=== PATIENT | female | born 1940 | race Two or more races ===

== ENCOUNTER → 2016-08-27 | Outpatient (CLI) | payer OTHER ==
[~2016-08-27] MED LIST: ALLO300T2 PO; DOCU100T15 PO; LISI2.5T47 PO; LORA-622 PO; METF-370 PO; PANT40TA2 PO; SERT-135 PO
[2016-08-27 12:51] LABS: Basophils # (auto) 0 uL; Basophils % (auto) 0.6 % (0.0-2.0); CONDITION Y; Eosinophils # (auto) 0.1 uL; Eosinophils % (auto) 2.3 % (0.0-7.0); Hematocrit 40.3 % (36.0-46.0); Hemoglobin 13.6 g/dL (12.2-16.2); Lymphocytes # (auto) 1.9 uL; Lymphocytes % (auto) 34.2 % (10.0-50.0); Mean Corpuscular Hemoglobin 30.1 pg (28.0-32.0); Mean Corpuscular Hgb Conc. 33.8 g/dL (32.0-36.0); Mean Corpuscular Volume 89.1 fL (80.0-100.0); Mean Platelet Volume 7.8 fL (7.4-10.4); Monocytes # (auto) 0.5 uL; Monocytes % (auto) 8.6 % (0.0-12.0); Neutrophils % (auto) 54.3 % (37.0-80.0); Platelet Count (auto) 314 10^3/uL (140-450); Red Cell Distribution Width 13.5 % (11.6-16.0); White Blood Cell 5.6 10^3/uL (4.4-10.8)
[2016-08-27 13:08] LABS: Urine Bilirubin Negative (Negative); Urine Blood Negative /uL (Negative); Urine Color Yellow (Yellow); Urine Glucose Normal (Normal); Urine Ketone Negative (Negative); Urine Nitrite Negative (Negative); Urine RBC 5 /hpf (0 - 4); Urine Squamous Epithelial Cell FEW /hpf (<5); Urine Urobilinogen Normal (Negative); Urine pH 6.5 (5.0-8.0)
[2016-08-27 13:14] LABS: Albumin 3.6 g/dL (3.4-5.0); BUN/Creatinine Ratio 24.1; Bilirubin, Total 0.4 mg/dL (0.2-1.0); Calcium 9.1 mg/dL (8.5-10.1); Potassium 4.1 mmol/L (3.5-5.1); Total Protein 7.4 g/dL (6.4-8.2); Uric Acid 5.9 mg/dL (2.6-6.0)
== END | disposition home or self-care (01) ==
LOC: LAB 11:01
PROVIDERS: ATTEND Family Medicine
DX: E11.9 Type 2 diabetes mellitus without complications (principal); E78.5 Hyperlipidemia, unspecified; M10.00 Idiopathic gout, unspecified site
CPT/HCPCS: 36415; 80053; 80061; 81001; 82043; 83036; 84550; 85025

== ENCOUNTER → 2016-11-03 | Outpatient (CLI) | payer OTHER ==
[~2016-11-03] VITALS: Ht 157.5 cm; Wt 72.1 kg
[~2016-11-03] MED LIST changes: +ADENOSINE 61 MG in GIVE UN-DILUTED 0 ML IV ONE
== END | disposition home or self-care (01) ==
LOC: XY 08:22
PROVIDERS: ATTEND Internal Medicine Cardiovascular Disease
DX: R07.9 Chest pain, unspecified (principal); I10 Essential (primary) hypertension; E11.9 Type 2 diabetes mellitus without complications
CPT/HCPCS: 78452; 93017; 93306; A9500; J0153

== ENCOUNTER → 2017-12-09 | Outpatient (CLI) | payer OTHER ==
[~2017-12-09] MED LIST changes: -ADENOSINE 61 MG in GIVE UN-DILUTED 0 ML IV ONE
== END | disposition home or self-care (01) ==
LOC: XYW 10:22
PROVIDERS: ATTEND Internal Medicine
DX: I10 Essential (primary) hypertension (principal); Z88.5 Allergy status to narcotic agent
CPT/HCPCS: 93306

== ENCOUNTER → 2017-12-15 | Outpatient (CLI) | payer OTHER ==
[2017-12-15 11:50] LABS: Basophils # (auto) 0 uL; Eosinophils # (auto) 0.3 uL; Eosinophils % (auto) 5.8 % (0.0-7.0); Hematocrit 38.2 % (36.0-46.0); Hemoglobin 13.4 g/dL (12.2-16.2); Lymphocytes # (auto) 1.4 uL; Lymphocytes % (auto) 30.8 % (10.0-50.0); Mean Corpuscular Hemoglobin 30.8 pg (28.0-32.0); Mean Corpuscular Volume 88.1 fL (80.0-100.0); Monocytes # (auto) 0.4 uL; Monocytes % (auto) 9.5 % (0.0-12.0); Neutrophils # (auto) 2.4 uL; Neutrophils % (auto) 52.9 % (37.0-80.0); Nucleated Red Blood Cells % 0.1 %; Platelet Count (auto) 245 10^3/uL (140-450); Red Blood Cells 4.34 10^6/uL (4.0-5.20); Red Cell Distribution Width 13.1 % (11.8-14.3); White Blood Cell 4.5 10^3/uL (4.4-10.8)
[2017-12-15 12:01] LABS: Urine Bacteria NONE SEEN /hpf (None Seen); Urine Blood Negative /uL (Negative); Urine Specific Gravity 1.015 (1.001-1.035); Urine WBC 3 /hpf (0 - 5)
[2017-12-15 12:19] LABS: Albumin 3.5 g/dL (3.4-5.0); Bilirubin, Total 0.6 mg/dL (0.2-1.0); CRP High Sensitivity 0.38 mg/dL (< 0.3); Calcium 8.9 mg/dL (8.5-10.1); Potassium 3.9 mmol/L (3.5-5.1); Total Protein 7.3 g/dL (6.4-8.2)
[2017-12-15 12:23] LABS: Free T4 (Free Thyroxine) 0.9 ng/dL (0.89-1.76)
[2017-12-15 12:24] LABS: T3 Total 1.35 ng/mL (0.60-1.81)
[2017-12-15 12:25] LABS: Folate (Folic Acid) 21.33 ng/mL (5.38-24)
== END | disposition home or self-care (01) ==
LOC: LAB 11:17
PROVIDERS: ATTEND Nurse Practitioner
DX: E78.5 Hyperlipidemia, unspecified (principal); I10 Essential (primary) hypertension; E11.9 Type 2 diabetes mellitus without complications; Z86.79 Personal history of other diseases of the circulatory system
CPT/HCPCS: 36415; 80053; 80061; 81001; 82306; 82607; 82746; 83036; 84439; 84443; 84480; 85025; 86141

== ENCOUNTER → 2018-06-27 | Outpatient (CLI) | payer OTHER ==
[2018-06-27 12:22] LABS: Basophils # (auto) 0.1 uL; Basophils % (auto) 1.5 % (0.0-2.0); Eosinophils # (auto) 0.3 uL; Eosinophils % (auto) 6.4 % (0.0-7.0); Hematocrit 40.4 % (36.0-46.0); Hemoglobin 13.7 g/dL (12.2-16.2); Lymphocytes # (auto) 1.3 uL; Lymphocytes % (auto) 30.3 % (10.0-50.0); Mean Corpuscular Hemoglobin 30.4 pg (28.0-32.0); Mean Corpuscular Volume 89.3 fL (80.0-100.0); Monocytes # (auto) 0.5 uL; Monocytes % (auto) 10.7 % (0.0-12.0); Neutrophils # (auto) 2.2 uL; Neutrophils % (auto) 51.1 % (37.0-80.0); Nucleated Red Blood Cells % 0.1 %; Platelet Count (auto) 244 10^3/uL (140-450); Red Blood Cells 4.52 10^6/uL (4.0-5.20); Red Cell Distribution Width 14.4 % (11.8-14.3); White Blood Cell 4.4 10^3/uL (4.4-10.8)
[2018-06-27 12:27] LABS: Urine Bacteria FEW /hpf (None Seen); Urine Blood TRACE /uL (Negative); Urine Specific Gravity 1.025 (1.001-1.035); Urine WBC 6 /hpf (0 - 5)
[2018-06-27 12:43] LABS: Potassium 4.2 mmol/L (3.5-5.1)
[2018-06-27 12:53] LABS: Albumin 3.5 g/dL (3.4-5.0); BUN/Creatinine Ratio 27.8; Bilirubin, Total 0.6 mg/dL (0.2-1.0); Total Protein 7.4 g/dL (6.4-8.2)
== END | disposition home or self-care (01) ==
LOC: LAB 10:32
PROVIDERS: ATTEND Nurse Practitioner
DX: E11.9 Type 2 diabetes mellitus without complications (principal); E78.5 Hyperlipidemia, unspecified
CPT/HCPCS: 36415; 80053; 80061; 81001; 82043; 83036; 84443; 85025

== ENCOUNTER → 2018-09-02 | Outpatient (CLI) | payer OTHER ==
[2018-09-02 11:00] LABS: Basophils # (auto) 0 uL; Basophils % (auto) 0.7 % (0.0-2.0); Eosinophils # (auto) 0.2 uL; Eosinophils % (auto) 3.2 % (0.0-7.0); Hematocrit 43.4 % (36.0-46.0); Hemoglobin 14.7 g/dL (12.2-16.2); Lymphocytes # (auto) 1.7 uL; Mean Corpuscular Hemoglobin 30.1 pg (28.0-32.0); Mean Corpuscular Hgb Conc. 33.8 g/dL (32.0-36.0); Mean Corpuscular Volume 89.1 fL (80.0-100.0); Monocytes # (auto) 0.6 uL; Monocytes % (auto) 9.1 % (0.0-12.0); Neutrophils # (auto) 3.7 uL; Nucleated Red Blood Cells % 0.1 %; Platelet Count (auto) 253 10^3/uL (140-450); Red Blood Cells 4.87 10^6/uL (4.0-5.20); Red Cell Distribution Width 12.9 % (11.8-14.3); White Blood Cell 6.2 10^3/uL (4.4-10.8)
[2018-09-02 13:01] LABS: Potassium 4.2 mmol/L (3.5-5.1)
[2018-09-02 13:09] LABS: Albumin 3.5 g/dL (3.4-5.0); BUN/Creatinine Ratio 25.3; Total Protein 7.6 g/dL (6.4-8.2)
[2018-09-02 14:01] LABS: Bilirubin, Total 0.4 mg/dL (0.2-1.0)
[2018-09-02 14:35] LABS: Urine Specific Gravity 1.012 (1.001-1.035)
[2018-09-02 14:36] LABS: Urine Blood Normal /uL (Negative)
[2018-09-02 15:25] LABS: Urine Bacteria FEW /hpf (None Seen); Urine Mucus FEW (None Seen); Urine WBC 9 /hpf (0 - 5)
== END | disposition home or self-care (01) ==
LOC: LAB 10:20
PROVIDERS: ATTEND Nurse Practitioner
DX: E11.9 Type 2 diabetes mellitus without complications (principal); E78.5 Hyperlipidemia, unspecified
CPT/HCPCS: 36415; 80053; 80061; 81001; 82043; 83036; 84443; 85025

== ENCOUNTER 2019-02-21 09:36 | Inpatient (IN) | payer OTHER ==
[2019-02-17 13:27] LABS: Urine Blood TRACE /uL (Negative); Urine Specific Gravity 1.012 (1.001-1.035)
[2019-02-17 13:32] LABS: Basophils # (auto) 0 uL; Basophils % (auto) 0.9 % (0.0-2.0); Eosinophils # (auto) 0.2 uL; Eosinophils % (auto) 3.9 % (0.0-7.0); Hematocrit 40.6 % (36.0-46.0); Lymphocytes # (auto) 1.5 uL; Lymphocytes % (auto) 29.8 % (10.0-50.0); Mean Corpuscular Hemoglobin 30.2 pg (28.0-32.0); Mean Corpuscular Hgb Conc. 34.4 g/dL (32.0-36.0); Monocytes # (auto) 0.5 uL; Monocytes % (auto) 9.3 % (0.0-12.0); Neutrophils # (auto) 2.7 uL; Neutrophils % (auto) 56.1 % (37.0-80.0); Nucleated Red Blood Cells % 0.2 %; Platelet Count (auto) 245 10^3/uL (140-450); Red Blood Cells 4.62 10^6/uL (4.0-5.20); Red Cell Distribution Width 13.6 % (11.8-14.3); White Blood Cell 4.9 10^3/uL (4.4-10.8)
[2019-02-17 13:44] LABS: INR 1.03 (0.9-1.15); Partial Thromboplastin Time 26.5 sec (23.64-32.05)
[2019-02-17 13:59] LABS: Albumin 3.7 g/dL (3.4-5.0); Calcium 8.8 mg/dL (8.5-10.1)
[2019-02-17 14:04] LABS: BUN/Creatinine Ratio 21.5; Bilirubin, Total 0.6 mg/dL (0.2-1.0); Total Protein 7.1 g/dL (6.4-8.2)
[2019-02-21] VITALS (7 sets, daily range): BP systolic 114–118; BP diastolic 60–76
[~2019-02-21] VITALS: Ht 157.5 cm; Wt 87.1 kg
[~2019-02-21 09:36] MED LIST changes: -ALLO300T2 PO; -DOCU100T15 PO; -LISI2.5T47 PO; -LORA-622 PO; -PANT40TA2 PO; -SERT-135 PO; +SERT100T PO
[2019-02-21] MEDS ORDERED: ceFAZolin 1GM/50ML 100 ML IV ONE (11:02)
[2019-02-21] MEDS ORDERED: ceFAZolin 1GM/50ML 50 ML IV ONE (11:07)
[2019-02-21] MEDS ORDERED: fentaNYL CITRATE 100 MCG/2 ML VL ONE (12:23)
[2019-02-21] MEDS ORDERED: ONDANSETRON HCL 4 MG/2 ML VIAL ONE (12:23)
[2019-02-21] MEDS ORDERED: MIDAZOLAM HCL 1MG/1ML-2 ML VIAL ONE ×2 (12:23→13:27)
[2019-02-21] MEDS ORDERED: EPINEPHrine HCL 1 MG/1 ML AMP ONE ×2 (12:23→12:53)
[2019-02-21] MEDS ORDERED: MORPHINE SULF(PF) 0.5MG/ML 10ML VIAL ONE (12:23)
[2019-02-21] MEDS ORDERED: SODIUM CHLORIDE LOCK 10 ML ONE (12:23)
[2019-02-21] MEDS ORDERED: BUPIVACAINE/DEXTROSE MPF 0.75% 2 ML AMP IT ONE (12:23)
[2019-02-21] MEDS ORDERED: PROPOFOL 10 MG/ML 20 ML IV ONE ×3 (12:23→15:48)
[2019-02-21] MEDS ORDERED: ROPIVACAINE 0.5% (5MG/ML) 20ML AMPULE IJ ONE (12:50)
[2019-02-21] MEDS ORDERED: KETOROLAC TROMETH 30 MG/ML 1ML VIAL ONE ×2 (12:53→12:54)
[2019-02-21] MEDS ORDERED: TETRACAINE 1% INJ 2 ML VIAL IJ ONE (12:56)
[2019-02-21] MEDS ORDERED: METOCLOPRAMIDE HCL 5MG/ml INJ 2ml VIAL IV PRN (14:30)
[2019-02-21] MEDS ORDERED: diphenhdrAMINE HCL 50 MG/1 ML VL IV PRN (14:30)
[2019-02-21] MEDS ORDERED: HYDROmorphone HCL 2 MG/ML VL IV PRN ×2 (14:30→16:45)
[2019-02-21] MEDS ORDERED: NALOXONE HCL 0.4 MG/ML VIAL IV PRN (14:30)
[2019-02-21] MEDS ORDERED: fentaNYL CITRATE 100 MCG/2 ML VL IV PRN (14:30)
[2019-02-21] MEDS ORDERED: MORPHINE SULFATE 4 MG/ML SYR/VIAL IV PRN (14:30)
[2019-02-21] MEDS ORDERED: ACCU-CHEK COMFORT CURVE STRIP VI ONE (14:30)
[2019-02-21] MEDS ORDERED: LIDOCAINE 1% (LOCAL ANESTH.) PF 5ml SDV ONE (15:47)
[2019-02-21] MEDS ORDERED: TEMAZEPAM 15 MG CAP PO PRN (16:45)
[2019-02-21] MEDS ORDERED: ACETAMINOPHEN 325 MG TAB PO PRN (16:45)
[2019-02-21] MEDS: ceFAZolin 1GM/50ML 50 ML IV SCH ×2 (16:45→22:08)
--- NOTE | 2019-02-21 18:00 | NUR ---
Telemetry admit from Surgery/PACU LOI ZHAO admitted to Telemetry unit after SBAR received. Patient oriented to Savanah Junior RN, unit, room, bed, and unit policies regarding patient care and visiting hours. Patient now on continuous telemetry monitoring, tele box # 18 and telemetry reading on arrival to unit is 87. Patient placed on bedside oxygen at 2 LPM, weighed by bed scale and encouraged to call if she needs something. All questions and concerns addressed. Patient is very hard of hearing. No hearing aid at bedside. Note: On Duramorph precautions per protocol.
--- NOTE | 2019-02-21 18:00 | NUR ---
On Anaya catheter.
--- NOTE | 2019-02-21 19:00 | NUR ---
Called patient's Riaz that patient is already transferred from PACU to Room 248A. Sanjana said he will come over tomorrow, Wednesday to see the patient.
--- NOTE | 2019-02-21 19:25 | NUR ---
OPENING NOTE- NOC SHIFT PATIENT IS ALERT AND ORIENTED X4, ANSWERS IN COMPLETE SENTENCES AND MAKES APPROPRIATE EYE CONTACT. 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 HEARING AIDS ARE NOT AT BEDSIDE; PATIENT STATES THAT HER TOOK THEM WITH HIM BEFORE HER SURGERY. PATIENT IS POST OP LEFT KNEE DENIES PAIN OR DISCOMFORT AT THIS TIME. PATIENT IS IN BED, BED IS LOCKED AT LOWEST POSITION, BED RAILS UP X2 AND HEAD OF BED IS UP >30 DEGREES. DISCUSSED POC WITH PATIENT AND INSTRUCTED PATIENT TO CALL PRN; PATIENT VERBALIZED UNDERSTANDING. WILL CONTINUE TO MONITOR Q1H AND PRN.
--- NOTE | 2019-02-21 19:50 | NUR ---
SCD'S APPLIED TO RIGHT LEG. PATIENT TOLERATES WELL.
--- NOTE | 2019-02-21 20:00 | NUR ---
POST DURAMORPH PROTOCOL ASSESSMENT IN PLACE. VITAL SIGNS Q1H AND CONTINUOUS PULSE OXIMETER. PATIENT ROOM IS CLOSE TO NURSE STATION.
[2019-02-21] MEDS: DOCUSATE SOD 100 MG CAP PO SCH (22:00)
[2019-02-21] MEDS: SODIUM CHLOR 0.9% PF (SALINE LOCK) 10ML VIAL/SYR IV SCH (22:07)
[2019-02-21] MEDS: HYDROcodone-ACET 10/325MG TAB PO PRN (23:07)
[2019-02-22] VITALS (16 sets, daily range): BP systolic 90–138; BP diastolic 48–78
[2019-02-22] MEDS: ceFAZolin 1GM/50ML 50 ML IV SCH (04:38)
[2019-02-22] MEDS: HYDROcodone-ACET 10/325MG TAB PO PRN ×5 (04:39→23:29)
[2019-02-22] MEDS: SODIUM CHLOR 0.9% PF (SALINE LOCK) 10ML VIAL/SYR IV SCH ×3 (05:12→21:44)
[2019-02-22 07:14] LABS: Hematocrit 31.1 % (36.0-46.0); Hemoglobin 10.6 g/dL (12.2-16.2)
--- NOTE | 2019-02-22 07:17 | NUR ---
CLOSING NOTE- NOC SHIFT PATIENT IS COMFORTABLE IN BED. NO S/SX OF DISTRESS OR SOB. PATIENT WAS ABLE TO REST THROUGHOUT THE NIGHT. PATIENT REPORTED PAIN OF NO HIGHER THAN 5/10 DURING DYE WEIGHER; PAIN MEDICATION WAS ADMINISTERED PER MD ORDERS ON eMAR. VITAL SIGNS WERE ASSESSED AND RECORDED. PATIENT BP THROUGHOUT THE NIGHT WAS LOW, HOWEVER PATIENT REPORTS THIS IS HER BASELINE WHEN AT REST DURING THE NIGHT; REFER TO INTERVENTION FOR SPINAL ANESTHESIA ASSESSMENT FOR VALUES. PATIENT WAS CALM THROUGHOUT THE NIGHT; BOWEL MOVEMENTS PRESENT, PATIENT REPORTS PASSING GAS. PEDAL PULSES PRESENT BILATERAL. WILL ENDORSE CPM TO DAY SHIFT NURSE.
--- NOTE | 2019-02-22 07:30 | NUR ---
Patient in bed, awake, oriented x4, hard of hearing, no acute distress noted, on Duramorph protocol. O2 Sat = 95% on O2 at 2 LPM, Heart rate = 86.
--- NOTE | 2019-02-22 07:30 | NUR ---
Right leg on SCD. Waiting for Ortho to deliver the CPM for left knee.
[2019-02-22] MEDS: DOCUSATE SOD 100 MG CAP PO SCH ×2 (09:35→21:43)
[2019-02-22] MEDS: ENOXAPARIN SOD 40 MG/0.4 ML SYRINGE SC SCH (09:35)
--- NOTE | 2019-02-22 09:36 | NUR ---
[place] PO given for left knee pain, and preparation for physical therapy. Addendum: 02/22/19 at 1852 by Savanah Ely RN [place]
--- NOTE | 2019-02-22 09:50 | NUR ---
Called Ortho. Spoke with Williams. Patient has orders for CPM, post op Left Total Knee Replacement yesterday, Wednesday. Patient transferred to Room 248A with no CPM at 6:00 pm yesterday.
--- NOTE | 2019-02-22 09:58 | NUR ---
Removed the Anaya catheter as ordered. About 120 ml of clear, light kenneth urine collected from the Anaya catheter.
[2019-02-22] MEDS: ONDANSETRON HCL 4 MG/2 ML VIAL IV PRN ×2 (11:02→16:00)
--- NOTE | 2019-02-22 11:02 | NUR ---
Patient sitting in chair, vomiting. Zofran Inj 4 mg given for nausea/vomiting. Family at bedside.
[2019-02-22] MEDS ORDERED: HYDROmorphone HCL 2 MG/ML VL IV PRN (11:30)
[2019-02-22] MEDS ORDERED: DEXTROSE (50%) 50ML SYRG IV PRN (11:30)
[2019-02-22] MEDS ORDERED: FAMOTIDINE (10MG/ML) 2ML VL IV ONE (11:30)
--- NOTE | 2019-02-22 11:35 | NUR ---
Patient back to bed, stated she feels better, no more nausea/vomiting.
[2019-02-22] MEDS: ACCU-CHEK COMFORT CURVE STRIP VI SCH ×3 (13:10→23:32)
[2019-02-22] MEDS: InsuLIN REG 1unit/0.01ml Soln (100units/ml) SC SCH ×3 (13:10→23:33)
--- NOTE | 2019-02-22 13:20 | NUR ---
Dr. Vyas at bedside. made aware CPM machine has not been brought by Ortho Unit yet. Dr. Vyas said it's okay, ordered to change the surgical dressing on the left knee, continue with physical therapy daily.
--- NOTE | 2019-02-22 13:28 | NUR ---
[place] PO given for left knee pain, preparation for surgical wound dressing change. Addendum: 02/22/19 at 1851 by Savanah Ely RN [place]
--- NOTE | 2019-02-22 13:35 | NUR ---
Surgical dressing on the left knee soiled with blood. Removed the dressing on the left knee, surgical azar intact, pat dry the area with sterile gauze. Applied sterile gauze, rolled with Kerlix, rolled with elastic bandage. Patient able to tolerate it.
--- NOTE | 2019-02-22 15:30 | NUR ---
Bj Huizar from Ortho at bedside. CPM machine placed on the left knee as ordered. Bhupendra said it is the CPM machine that patient will take home upon discharge.
--- NOTE | 2019-02-22 16:00 | NUR ---
Patient is nauseous, vomiting. Zofran Inj given as ordered.
--- NOTE | 2019-02-22 16:39 | NUR ---
Temp = 100.3 F. Tylenol 325 mg PO given for elevated temperature.
--- NOTE | 2019-02-22 19:35 | NUR ---
Opening Shift Note Assumed care of patient, awake and alert. No S/S of distress/SOB. Dressing to left knee dry and intact. Instructed on POC and to call for assist PRN, patient verbalized understanding, call light within reach, bed alarm on, will continue to monitor for changes Q1hr and PRN.
[2019-02-22] MEDS: FAMOTIDINE (10MG/ML) 2ML VL IV SCH (21:43)
[2019-02-23 05:30] VITALS: BP 150/64
[2019-02-23] MEDS: InsuLIN REG 1unit/0.01ml Soln (100units/ml) SC SCH ×4 (06:00→23:36)
[2019-02-23] MEDS: SODIUM CHLOR 0.9% PF (SALINE LOCK) 10ML VIAL/SYR IV SCH ×3 (06:00→21:48)
[2019-02-23] MEDS: ACCU-CHEK COMFORT CURVE STRIP VI SCH ×4 (06:00→23:36)
[2019-02-23 06:22] LABS: Basophils # (auto) 0 uL; Basophils % (auto) 0.5 % (0.0-2.0); Eosinophils # (auto) 0.1 uL; Eosinophils % (auto) 0.9 % (0.0-7.0); Hematocrit 30.6 % (36.0-46.0); Hemoglobin 10.6 g/dL (12.2-16.2); Lymphocytes % (auto) 12.8 % (10.0-50.0); Mean Corpuscular Hemoglobin 30.6 pg (28.0-32.0); Mean Corpuscular Hgb Conc. 34.5 g/dL (32.0-36.0); Mean Corpuscular Volume 88.8 fL (80.0-100.0); Monocytes % (auto) 13.2 % (0.0-12.0); Neutrophils # (auto) 5.7 uL; Neutrophils % (auto) 72.6 % (37.0-80.0); Platelet Count (auto) 190 10^3/uL (140-450); Red Blood Cells 3.45 10^6/uL (4.0-5.20); Red Cell Distribution Width 13.7 % (11.8-14.3); White Blood Cell 7.9 10^3/uL (4.4-10.8)
[2019-02-23 06:31] LABS: BUN/Creatinine Ratio 19.5; Calcium 8.7 mg/dL (8.5-10.1); Potassium 4.2 mmol/L (3.5-5.1)
[2019-02-23] MEDS: HYDROcodone-ACET 10/325MG TAB PO PRN ×2 (06:57→15:39)
--- NOTE | 2019-02-23 07:12 | NUR ---
CPM resumed at 55 degrees as instructed, patient tolerated well
[2019-02-23 09:00] VITALS: BP 118/48
[2019-02-23] MEDS: FAMOTIDINE (10MG/ML) 2ML VL IV SCH (09:27)
[2019-02-23] MEDS: DOCUSATE SOD 100 MG CAP PO SCH ×2 (09:27→21:37)
[2019-02-23] MEDS: SERTRALINE HCL 50 MG TAB PO SCH (09:28)
[2019-02-23] MEDS: ENOXAPARIN SOD 40 MG/0.4 ML SYRINGE SC SCH (09:28)
--- NOTE | 2019-02-23 10:22 | NUR ---
assessment re: discharge planning Patient is a 78 year old female who is alert and oriented. Patients cognitive abilities are intact. Prior to admission patient lived home with family and functioned independently. Patient informed me she is able to care for her own ADLs. Per patient she will return home to her prior living arrangements post discharge and family will transport her home. Patient informed me she was admitted for left knee replacement. Patient will need home health for PT, CPM, and a fww at discharge. Patient informed me her PCP is Kun HAMMOND. Patient feels safe returning home. Patient informed me her daughter will be with her to help with any needs she may have on discharge. I informed patient she has a right to speak to a geriatric social worker regarding all care. I informed patient she has a right to participate in any and all discharge planning. Patient does not have a POA and advanced directive. I have offered patient information on POA and advanced directives. I informed the patient the advantages and benefits of having an Advanced Directive. Patient verbalized understanding and agreed to discharge plan. Addendum: 02/23/19 at 1030 by Genevieve MARTINEZ Amended: Links added.
[2019-02-23 13:00] VITALS: BP 119/63
--- NOTE | 2019-02-23 14:23 | NUR ---
PATIENT REFUSED TO AMBULATE WITH PT. BUT DID HAVE CPM MACHINE ON LEG AND SAID IT HAS BEEN ON ALL DAY. Addendum: 02/23/19 at 1425 by WHIT CASTILLO PTT Amended: Links added.
--- NOTE | 2019-02-23 15:46 | NUR ---
Paged Dr. Patrick Pt has temp 100.1, waiting for call back.
--- NOTE | 2019-02-23 15:46 | NUR ---
Per MD order for Walker DELIVERY TO BEDSIDE faxed to [facility] [phone]. Order for Home Health faxed to [facility] [phone].Pending Acceptance.
--- NOTE | 2019-02-23 16:30 | NUR ---
temp checked 99.5, will continue to monitor.
--- NOTE | 2019-02-23 16:36 | NUR ---
Contact Clari Schaefer (Vilma). Order has been placed with [facility]. Once reviewed Walker will be delivered to bedside.
[2019-02-23 17:01] VITALS: BP 139/78
--- NOTE | 2019-02-23 19:00 | NUR ---
OPENING NOTE Received report from day shift RN. Patient is A&O X's 4 with no s/s of distress and patient reports no pain at this time. Educated patient on POC and to use call light when in need of assistance. Patient verbalized understanding. Bed is in lowest/locked position with side rails up X's 2 and call light is within reach of patient. Commode and walker are at bedside. Set bed alarm for safety. Patient has SCD's applied bilaterally. Dressing to left knee is C/D/I. Will continue care.
[2019-02-23] MEDS: traMADol HCL 50 MG TAB PO PRN (21:40)
[2019-02-23 22:45] VITALS: BP 105/65
[2019-02-24 04:54] VITALS: BP 142/81
[2019-02-24] MEDS: InsuLIN REG 1unit/0.01ml Soln (100units/ml) SC SCH ×2 (05:47→12:00)
[2019-02-24] MEDS: SODIUM CHLOR 0.9% PF (SALINE LOCK) 10ML VIAL/SYR IV SCH (05:47)
[2019-02-24] MEDS: ACCU-CHEK COMFORT CURVE STRIP VI SCH ×2 (05:48→12:58)
[2019-02-24 06:50] LABS: Hematocrit 28.5 % (36.0-46.0); Hemoglobin 9.8 g/dL (12.2-16.2)
[2019-02-24] MEDS: traMADol HCL 50 MG TAB PO PRN (08:42)
[2019-02-24 09:00] VITALS: BP 125/72
[2019-02-24] MEDS: DOCUSATE SOD 100 MG CAP PO SCH (09:36)
[2019-02-24] MEDS: ENOXAPARIN SOD 40 MG/0.4 ML SYRINGE SC SCH (09:36)
[2019-02-24] MEDS: SERTRALINE HCL 50 MG TAB PO SCH (09:37)
[2019-02-24] MEDS ORDERED: FAMOTIDINE 20 MG TAB PO SCH (10:00)
--- NOTE | 2019-02-24 10:55 | NUR ---
pt seen by Dr. Patrick per Dr. Patrick pt can go home.
--- NOTE | 2019-02-24 11:00 | NUR ---
WOUND DRESSING DONE ON LEFT KNEE, NO BLEEDING OR DISCHARGES NOTED.
--- NOTE | 2019-02-24 11:45 | NUR ---
Spoke with Vilma in [employer], per Vilma pt has been accepted by [facility], pt is okay to go home. pt has the CPM and walker at bedside.
--- NOTE | 2019-02-24 13:20 | NUR ---
Discharge instructions given as ordered. Encourage to follow up with DR. BRINK ON 03/02/[address] BRITO ON 03/10/19 AT 1400 as instructed. All questions and concerns addressed. Patient verbalized understanding. Medication reconciliation form completed and copy given to patient. IV removed with catheter intact, pressure dressing applied. Telemetry unit returned to ICU. Patient taken to vehicle via wheelchair with all personal belongings, WITH WALKER AND CPM MACHINE ,accompanied by staff and family member. No distress noted at time of departure.
== END 2019-02-24 13:20 | disposition home or self-care (01) | DRG 470 ==
LOC: SUR 09:36 → TELE-EAST 09:37
PROVIDERS: ADMIT Orthopaedic Surgery; ATTEND Internal Medicine
PROC: 0KNR0ZZ Release Left Upper Leg Muscle, Open Approach (ICD-10-PCS; 2019-02-21)
PROC: 0MBP0ZZ Excision of Left Knee Bursa and Ligament, Open Approach (ICD-10-PCS; 2019-02-21)
PROC: 8E0YXBZ Computer Assisted Procedure of Lower Extremity (ICD-10-PCS; 2019-02-21)
PROC: 0SRD0J9 Replacement of Left Knee Joint with Synthetic Substitute, Cemented, Open Approach (ICD-10-PCS; principal; 2019-02-21 13:11)
DX: M17.12 Unilateral primary osteoarthritis, left knee (principal); M70.42 Prepatellar bursitis, left knee; M21.162 Varus deformity, not elsewhere classified, left knee; E11.9 Type 2 diabetes mellitus without complications; E66.9 Obesity, unspecified; I10 Essential (primary) hypertension; M10.9 Gout, unspecified; Z79.01 Long term (current) use of anticoagulants; Z88.8 Allergy status to other drugs, medicaments and biological substances; Z68.35 Body mass index [BMI] 35.0-35.9, adult; Z79.84 Long term (current) use of oral hypoglycemic drugs
CPT/HCPCS: 36415; 73560; 80048; 80053; 81003; 82962; 85014; 85018; 85025; 85610; 85730; 86850; 86900; 86901; 97116; 97530; G0378; J0171; J0690; J1815; J1885; J2250; J2405; J2704; J3490

== ENCOUNTER → 2019-07-04 | Outpatient (CLI) | payer OTHER ==
[2019-07-04 11:39] LABS: Basophils # (auto) 0 10 ^3/uL (0-0.2); Eosinophils # (auto) 0.1 10 ^3/uL (0-0.8); Eosinophils % (auto) 2.9 % (0.0-7.0); Hematocrit 40.9 % (36.0-46.0); Hemoglobin 13.5 g/dL (12.2-16.2); Lymphocytes # (auto) 1.1 10 ^3/uL (0.4-5.4); Lymphocytes % (auto) 24.5 % (10.0-50.0); Mean Corpuscular Hemoglobin 27.9 pg (28.0-32.0); Mean Corpuscular Hgb Conc. 33.1 g/dL (32.0-36.0); Mean Corpuscular Volume 84.3 fL (80.0-100.0); Monocytes # (auto) 0.4 10 ^3/uL (0-1.3); Monocytes % (auto) 9.8 % (0.0-12.0); Neutrophils # (auto) 2.7 10 ^3/uL (1.6-8.6); Neutrophils % (auto) 61.8 % (37.0-80.0); Nucleated Red Blood Cells % 0.1 %; Platelet Count (auto) 245 10^3/uL (140-450); Red Blood Cells 4.85 10^6/uL (4.0-5.20); Red Cell Distribution Width 15.4 % (11.8-14.3); White Blood Cell 4.4 10^3/uL (4.4-10.8)
[2019-07-04 12:28] LABS: Potassium 4.5 mmol/L (3.5-5.1)
[2019-07-04 12:36] LABS: Albumin 3.5 g/dL (3.4-5.0); Bilirubin, Total 0.6 mg/dL (0.2-1.0); Calcium 9.2 mg/dL (8.5-10.1); Total Protein 7.5 g/dL (6.4-8.2); Uric Acid 5.2 mg/dL (2.6-6.0)
== END | disposition home or self-care (01) ==
LOC: LAB 11:13
PROVIDERS: ATTEND Internal Medicine
DX: E11.22 Type 2 diabetes mellitus with diabetic chronic kidney disease (principal); E78.5 Hyperlipidemia, unspecified; N18.2 Chronic kidney disease, stage 2 (mild); Z79.899 Other long term (current) drug therapy
CPT/HCPCS: 36415; 80053; 80061; 82043; 82306; 83036; 84550; 85025

== ENCOUNTER → 2019-10-16 | Outpatient (CLI) | payer OTHER ==
[2019-10-16 12:24] LABS: Albumin 3.5 g/dL (3.4-5.0)
[2019-10-16 12:30] LABS: Bilirubin, Direct 0.2 mg/dL (0-0.2); Bilirubin, Total 0.6 mg/dL (0.2-1.0); Total Protein 7.2 g/dL (6.4-8.2)
== END | disposition home or self-care (01) ==
LOC: LAB 11:14
PROVIDERS: ATTEND Internal Medicine
DX: Z12.11 Encounter for screening for malignant neoplasm of colon (principal); E11.9 Type 2 diabetes mellitus without complications; I10 Essential (primary) hypertension
CPT/HCPCS: 36415; 80076

== ENCOUNTER → 2019-11-30 | Outpatient (CLI) | payer OTHER ==
[2019-11-30 17:56] LABS: Albumin 3.7 g/dL (3.4-5.0)
[2019-11-30 18:04] LABS: Bilirubin, Direct 0.2 mg/dL (0-0.2); Bilirubin, Total 0.6 mg/dL (0.2-1.0); Total Protein 7.2 g/dL (6.4-8.2)
== END | disposition home or self-care (01) ==
LOC: LAB 11:50
PROVIDERS: ATTEND Internal Medicine
DX: E78.5 Hyperlipidemia, unspecified (principal); E11.9 Type 2 diabetes mellitus without complications
CPT/HCPCS: 36415; 80061; 80076

== ENCOUNTER → 2020-03-05 | Outpatient (CLI) | payer OTHER | END | disposition home or self-care (01) | LOC: LAB 17:00 | PROVIDERS: ATTEND Physician Assistant | DX: Z20.828 Contact with and (suspected) exposure to other viral communicable diseases (principal) ==

== ENCOUNTER → 2020-08-06 | Outpatient (CLI) | payer OTHER ==
[2020-08-06 09:51] LABS: Basophils # (auto) 0 10 ^3/uL (0-0.2); Basophils % (auto) 0.8 % (0.0-2.0); Eosinophils # (auto) 0.1 10 ^3/uL (0-0.8); Eosinophils % (auto) 3.4 % (0.0-7.0); Hematocrit 38.2 % (36.0-46.0); Hemoglobin 13.2 g/dL (12.2-16.2); Lymphocytes # (auto) 0.8 10 ^3/uL (0.4-5.4); Lymphocytes % (auto) 20.7 % (10.0-50.0); Mean Corpuscular Hemoglobin 30.6 pg (28.0-32.0); Mean Corpuscular Hgb Conc. 34.6 g/dL (32.0-36.0); Mean Corpuscular Volume 88.5 fL (80.0-100.0); Monocytes # (auto) 0.4 10 ^3/uL (0-1.3); Monocytes % (auto) 9.7 % (0.0-12.0); Neutrophils # (auto) 2.7 10 ^3/uL (1.6-8.6); Neutrophils % (auto) 65.4 % (37.0-80.0); Nucleated Red Blood Cells % 0.6 %; Platelet Count (auto) 216 10^3/uL (140-450); Red Blood Cells 4.31 10^6/uL (4.0-5.20); Red Cell Distribution Width 13.7 % (11.8-14.3); White Blood Cell 4.1 10^3/uL (4.4-10.8)
[2020-08-06 10:13] LABS: Potassium 4.1 mmol/L (3.5-5.1)
[2020-08-06 10:23] LABS: Albumin 3.4 g/dL (3.4-5.0); BUN/Creatinine Ratio 23.3; Bilirubin, Total 0.6 mg/dL (0.2-1.0); Calcium 8.6 mg/dL (8.5-10.1); Total Protein 6.9 g/dL (6.4-8.2)
== END | disposition home or self-care (01) ==
LOC: LAB 09:13
PROVIDERS: ATTEND Internal Medicine
DX: E11.9 Type 2 diabetes mellitus without complications (principal); I10 Essential (primary) hypertension; E78.5 Hyperlipidemia, unspecified
CPT/HCPCS: 36415; 80053; 80061; 82043; 83036; 85025

== ENCOUNTER → 2020-10-30 | Outpatient (CLI) | payer OTHER ==
[2020-10-30 14:08] LABS: Basophils # (auto) 0.1 10 ^3/uL (0-0.2); Basophils % (auto) 1.3 % (0.0-2.0); Eosinophils # (auto) 0.2 10 ^3/uL (0-0.8); Eosinophils % (auto) 4.7 % (0.0-7.0); Hematocrit 38.2 % (36.0-46.0); Hemoglobin 13.1 g/dL (12.2-16.2); Lymphocytes # (auto) 1.1 10 ^3/uL (0.4-5.4); Lymphocytes % (auto) 24.8 % (10.0-50.0); Mean Corpuscular Hemoglobin 29.9 pg (28.0-32.0); Mean Corpuscular Hgb Conc. 34.3 g/dL (32.0-36.0); Monocytes # (auto) 0.5 10 ^3/uL (0-1.3); Monocytes % (auto) 11.6 % (0.0-12.0); Neutrophils # (auto) 2.5 10 ^3/uL (1.6-8.6); Neutrophils % (auto) 57.6 % (37.0-80.0); Nucleated Red Blood Cells % 0.1 %; Red Blood Cells 4.38 10^6/uL (4.0-5.20); Red Cell Distribution Width 13.3 % (11.8-14.3); White Blood Cell 4.3 10^3/uL (4.4-10.8)
[2020-10-30 14:11] LABS: Urine Bacteria NONE SEEN /hpf (None Seen); Urine Blood TRACE /uL (Negative); Urine Mucus FEW (None Seen); Urine Specific Gravity 1.018 (1.001-1.035); Urine WBC 2 /hpf (0 - 5)
== END | disposition home or self-care (01) ==
LOC: LAB 13:40
PROVIDERS: ATTEND Internal Medicine
DX: E11.9 Type 2 diabetes mellitus without complications (principal); N39.0 Urinary tract infection, site not specified
CPT/HCPCS: 36415; 81001; 84443; 85025

== ENCOUNTER → 2021-02-27 | Outpatient (CLI) | payer OTHER | END | disposition home or self-care (01) | LOC: XYW 11:00 | PROVIDERS: ATTEND Internal Medicine | DX: Z01.810 Encounter for preprocedural cardiovascular examination (principal); I51.7 Cardiomegaly; I35.0 Nonrheumatic aortic (valve) stenosis | CPT/HCPCS: 93306 ==

== ENCOUNTER → 2021-04-08 | Outpatient (CLI) | payer OTHER ==
[~2021-04-08] VITALS: Ht 157.5 cm; Wt 78.9 kg
[~2021-04-08] MED LIST changes: +ADENOSINE 66 MG in GIVE UN-DILUTED 0 ML IV STA
[2021-04-08 10:02] VITALS: BP 170/75
== END | disposition home or self-care (01) ==
LOC: XY 09:13
PROVIDERS: ATTEND Internal Medicine
DX: Z01.810 Encounter for preprocedural cardiovascular examination (principal); I10 Essential (primary) hypertension
CPT/HCPCS: 78452; 93017; A9500; J0153

== ENCOUNTER 2021-05-12 07:07 | Day surgery (SDC) | payer OTHER ==
[2021-05-09 10:03] LABS: INR 1.03 (0.9-1.15); Partial Thromboplastin Time 26.2 sec (23.6-33.0)
[2021-05-09 13:29] LABS: Albumin 3.9 g/dL (3.4-5.0); Calcium 9.3 mg/dL (8.5-10.1); Potassium 4.5 mmol/L (3.5-5.1)
[2021-05-09 13:32] LABS: BUN/Creatinine Ratio 30.5; Bilirubin, Total 0.9 mg/dL (0.2-1.0); Total Protein 7.6 g/dL (6.4-8.2)
[2021-05-09 13:45] LABS: Basophils # (auto) 0.1 10 ^3/uL (0-0.2); Basophils % (auto) 2.9 % (0.0-2.0); Eosinophils # (auto) 0.2 10 ^3/uL (0-0.8); Eosinophils % (auto) 3.5 % (0.0-7.0); Hematocrit 41.7 % (36.0-46.0); Hemoglobin 14.4 g/dL (12.2-16.2); Lymphocytes # (auto) 0.9 10 ^3/uL (0.4-5.4); Lymphocytes % (auto) 21.3 % (10.0-50.0); Mean Corpuscular Hemoglobin 30.6 pg (28.0-32.0); Mean Corpuscular Hgb Conc. 34.5 g/dL (32.0-36.0); Mean Corpuscular Volume 88.8 fL (80.0-100.0); Monocytes # (auto) 0.3 10 ^3/uL (0-1.3); Monocytes % (auto) 7.6 % (0.0-12.0); Neutrophils # (auto) 2.8 10 ^3/uL (1.6-8.6); Neutrophils % (auto) 64.7 % (37.0-80.0); Nucleated Red Blood Cells % 0.2 %; Red Blood Cells 4.69 10^6/uL (4.0-5.20); Red Cell Distribution Width 13.9 % (11.8-14.3); White Blood Cell 4.4 10^3/uL (4.4-10.8)
[2021-05-12] VITALS (7 sets, daily range): BP systolic 116–131; BP diastolic 56–71
[~2021-05-12] VITALS: Ht 157.5 cm; Wt 78.5 kg
[~2021-05-12 07:07] MED LIST changes: -ADENOSINE 66 MG in GIVE UN-DILUTED 0 ML IV STA; +ALBU108A5 IN; +ATOR10TA PO; +GLUC-145 VI; +LISI-716 PO
[2021-05-12] MEDS ORDERED: LIDOCAINE 2%HCL (LOCAL ANESTH.) INJ 20ML MDV ONE (09:00)
[2021-05-12] MEDS ORDERED: IODIXANOL 320MG/ML 100ML BTL IV ONE (09:00)
[2021-05-12] MEDS ORDERED: VERAPAMIL 2.5MG/ML INJ 2ML VIAL IV ONE (09:03)
[2021-05-12] MEDS ORDERED: HEPARIN SODIUM (PORCINE) 5000 UNITS/ML 1ML VIAL ONE (09:03)
[2021-05-12] MEDS ORDERED: MIDAZOLAM HCL 2MG/2ML 2ml VIAL (1mg/ml) ONE (09:03)
[2021-05-12] MEDS ORDERED: ANGIOMAX 250 MG VIAL IV ONE (09:03)
[2021-05-12] MEDS ORDERED: SODIUM CHL 0.9% 0 ML ONE (09:03)
[2021-05-12] MEDS ORDERED: fentaNYL CITRATE 100 MCG/2 ML VL ONE (09:03)
[2021-05-12] MEDS ORDERED: diphenhdrAMINE HCL 50 MG/1 ML VL ONE (09:34)
== END 2021-05-12 12:15 | disposition home or self-care (01) ==
LOC: CATH 07:07
PROVIDERS: ATTEND Internal Medicine
DX: R94.39 Abnormal result of other cardiovascular function study (principal); I25.10 Atherosclerotic heart disease of native coronary artery without angina pectoris; Z87.891 Personal history of nicotine dependence; Z20.822 Contact with and (suspected) exposure to COVID-19
CPT/HCPCS: 36415; 80053; 85025; 85610; 85730; 93458; C1769; C1887; C1894; J1644; J2250; J3010; J7030; Q9967; U0003; 99152

== ENCOUNTER → 2021-06-04 | Day surgery (SDC) | payer OTHER ==
[2021-06-02 13:43] LABS: Basophils # (auto) 0.1 10 ^3/uL (0-0.2); Basophils % (auto) 2.1 % (0.0-2.0); Eosinophils # (auto) 0.2 10 ^3/uL (0-0.8); Hematocrit 38.6 % (36.0-46.0); Hemoglobin 13.5 g/dL (12.2-16.2); Lymphocytes % (auto) 20.6 % (10.0-50.0); Mean Corpuscular Hemoglobin 30.2 pg (28.0-32.0); Mean Corpuscular Hgb Conc. 34.9 g/dL (32.0-36.0); Mean Corpuscular Volume 86.7 fL (80.0-100.0); Monocytes # (auto) 0.4 10 ^3/uL (0-1.3); Monocytes % (auto) 9.1 % (0.0-12.0); Neutrophils % (auto) 63.2 % (37.0-80.0); Nucleated Red Blood Cells % 0.1 %; Red Blood Cells 4.45 10^6/uL (4.0-5.20); Red Cell Distribution Width 13.5 % (11.8-14.3); White Blood Cell 4.7 10^3/uL (4.4-10.8)
[2021-06-02 14:02] LABS: Urine Bacteria NONE SEEN /hpf (None Seen); Urine Blood Negative /uL (Negative); Urine Mucus FEW (None Seen); Urine Specific Gravity 1.023 (1.001-1.035); Urine WBC 5 /hpf (0 - 5)
[2021-06-02 14:05] LABS: INR 1.02 (0.9-1.15); Partial Thromboplastin Time 26.3 sec (23.6-33.0)
[2021-06-02 14:31] LABS: Potassium 4.3 mmol/L (3.5-5.1)
[2021-06-02 14:36] LABS: Albumin 3.5 g/dL (3.4-5.0); BUN/Creatinine Ratio 19.2; Calcium 8.9 mg/dL (8.5-10.1)
[2021-06-02 14:38] LABS: Bilirubin, Total 0.4 mg/dL (0.2-1.0); Total Protein 7.2 g/dL (6.4-8.2)
[~2021-06-04] VITALS: Ht 157.5 cm; Wt 77.6 kg
[~2021-06-04] MED LIST changes: +BUPIVACAINE W/ EPINEPH 0.25% INJ 50ML MDV ONE; +GLYCOPYRROLATE 0.2 MG/ML 1ML VIAL ONE; +HYDROmorphone HCL 2 MG/ML VL IV PRN; +IBUP800T27 PO; +LIDOCAINE 2% (LOCAL ANESTH.) PF 5ml SDV ONE; +MIDAZOLAM HCL 2MG/2ML 2ml VIAL (1mg/ml) ONE; +NEOSTIGMINE 1 MG/ML INJ (10mg/10ML VIAL) IV ONE; +ONDANSETRON HCL 4 MG/2 ML VIAL IV PRN; +ONDANSETRON HCL 4 MG/2 ML VIAL ONE; +POVIDONE IODINE 10 % TOPICAL OINT 30GM TOP ONE; +PROPOFOL 10 MG/ML 20 ML IV ONE; +ceFAZolin 1GM/50ML 50 ML IV ONE; +ePHEDrine SULFATE 50 MG/ML AMP ONE; +fentaNYL CITRATE 100 MCG/2 ML VL ONE
[2021-06-04 16:15] VITALS: BP 113/59
== END | disposition home or self-care (01) ==
LOC: SUR 07:36
PROVIDERS: ATTEND Surgery
DX: C43.59 Malignant melanoma of other part of trunk (principal); D36.0 Benign neoplasm of lymph nodes; I10 Essential (primary) hypertension; E78.5 Hyperlipidemia, unspecified; Z96.652 Presence of left artificial knee joint; Z98.890 Other specified postprocedural states; Z79.899 Other long term (current) drug therapy; Z88.5 Allergy status to narcotic agent; Z20.822 Contact with and (suspected) exposure to COVID-19
CPT/HCPCS: 11403; 36415; 38525; 78195; 80053; 81001; 82962; 85025; 85610; 85730; 88305; 88342; A9541; J0690; J1170; J2001; J2250; J2405; J2704; J3010; U0003

== ENCOUNTER → 2021-09-23 | Outpatient (CLI) | payer OTHER ==
[~2021-09-23] MED LIST changes: -BUPIVACAINE W/ EPINEPH 0.25% INJ 50ML MDV ONE; -GLYCOPYRROLATE 0.2 MG/ML 1ML VIAL ONE; -HYDROmorphone HCL 2 MG/ML VL IV PRN; -LIDOCAINE 2% (LOCAL ANESTH.) PF 5ml SDV ONE; -MIDAZOLAM HCL 2MG/2ML 2ml VIAL (1mg/ml) ONE; -NEOSTIGMINE 1 MG/ML INJ (10mg/10ML VIAL) IV ONE; -ONDANSETRON HCL 4 MG/2 ML VIAL IV PRN; -ONDANSETRON HCL 4 MG/2 ML VIAL ONE; -POVIDONE IODINE 10 % TOPICAL OINT 30GM TOP ONE; -PROPOFOL 10 MG/ML 20 ML IV ONE; -ceFAZolin 1GM/50ML 50 ML IV ONE; -ePHEDrine SULFATE 50 MG/ML AMP ONE; -fentaNYL CITRATE 100 MCG/2 ML VL ONE
== END | disposition home or self-care (01) ==
LOC: LAB 09:13
PROVIDERS: ATTEND Internal Medicine
DX: E11.9 Type 2 diabetes mellitus without complications (principal)
CPT/HCPCS: 36415; 83036

== ENCOUNTER → 2021-10-06 | Outpatient (CLI) | payer OTHER ==
[2021-10-06 12:07] LABS: Potassium 3.9 mmol/L (3.5-5.1)
[2021-10-06 12:38] LABS: Albumin 3.4 g/dL (3.4-5.0); BUN/Creatinine Ratio 18.2; Bilirubin, Total 0.6 mg/dL (0.2-1.0); Calcium 8.8 mg/dL (8.5-10.1); Total Protein 6.6 g/dL (6.4-8.2)
== END | disposition home or self-care (01) ==
LOC: LAB 10:50
PROVIDERS: ATTEND Internal Medicine
DX: J44.9 Chronic obstructive pulmonary disease, unspecified (principal); E11.9 Type 2 diabetes mellitus without complications; R53.83 Other fatigue
CPT/HCPCS: 36415; 80053; 80061; 82043; 82607; 84443

== ENCOUNTER → 2021-12-01 | Outpatient (CLI) | payer OTHER ==
[2021-12-01 14:10] LABS: Cholesterol 128 mg/dL (< 200); HDL Cholesterol 67 mg/dL (40-59); LDL Cholesterol 54 mg/dL (< 100); Triglycerides 74 mg/dL (< 150)
== END | disposition home or self-care (01) ==
LOC: LAB 12:50
PROVIDERS: ATTEND Internal Medicine
DX: E11.9 Type 2 diabetes mellitus without complications (principal); I10 Essential (primary) hypertension
CPT/HCPCS: 36415; 80061; 82043; 82607; 83036